=== PATIENT | male | born 1995 | race Caucasian/White ===

== ENCOUNTER 2017-04-15 15:19 | Emergency (ER) | payer BC ==
[2017-04-15 16:58] VITALS: BP 142/91
--- NOTE | 2017-04-15 17:07 | EDM.PDOC ---
ED HPI GENERAL MEDICAL PROBLEM - General Chief Complaint: ENT Problem Stated Complaint: STREP Time Seen by Provider: 04/15/17 16:58 Source of Information: Reports: Patient History Limitations: Reports: No Limitations - History of Present Illness INITIAL COMMENTS - FREE TEXT/NARRATIVE: 21 yo presents with 24 hours fo sore throat and body aches. family has strep. generally healthy. denies cough or nasal congestion. Throat Pain Score (Numeric/FACES): 6 - Related Data Allergies Allergy/AdvReac Type Severity Reaction Status Date / Time No Known Allergies Allergy Verified 04/15/17 16:57 Home Meds: Home Meds NK [No Known Home Meds] 04/15/17 [History] Past Medical History - Past Health History Medical/Surgical History: Denies Medical/Surgical History Social & Family History - Tobacco Use Smoking Status *Q: Never Smoker - Caffeine Use Caffeine Use: Reports: None - Recreational Drug Use Recreational Drug Use: No ED ROS ENT - Review of Systems Review Of Systems: See Below Constitutional: Reports: Fever, Chills, Malaise, Fatigue HEENT: Reports: Throat Pain, Throat Swelling Respiratory: Denies: Shortness of Breath, Wheezing Cardiovascular: Denies: Chest Pain Skin: Denies: Rash ED EXAM, ENT - Physical Exam Exam: See Below Exam Limited By: No Limitations General Appearance: Alert, WD/WN, No Apparent Distress Ears: Normal External Exam, Normal Canal, Hearing Grossly Normal, Normal TMs Nose: Normal Inspection, Normal Mucousa, No Blood Mouth/Throat: Pharyngeal Erythema, Tonsillar Erythema, Tonsillar Exudates, Tonsillar Swelling Head: Atraumatic, Normocephalic Neck: Supple, Lymphadenopathy (R), Lymphadenopathy (L) Respiratory/Chest: No Respiratory Distress, Lungs Clear, Normal Breath Sounds. No: Crackles, Rhonchi, Wheezing Cardiovascular: Regular Rate, Rhythm GI/Abdominal: Soft, Non-Tender Neurological: Alert, Oriented Psychiatric: Normal Affect, Normal Mood Skin: Warm, Dry. No: Rash Course - Vital Signs Last Recorded V/S: Last Vital Signs Temp 35.3 C 04/15/17 16:55 Pulse 96 04/15/17 16:55 Resp 16 04/15/17 16:55 BP 142/91 H 04/15/17 16:55 Pulse Ox 100 04/15/17 16:55 - Re-Assessments/Exams Free Text/Narrative Re-Assessment/Exam: 04/15/17 17:41 positive quick strep will tx with pen V K 500 mg BID for 10 days Departure - Departure Time of Disposition: 17:42 Disposition: Home, Self-Care 01 Condition: good Clinical Impression: Strep pharyngitis - Discharge Information Forms: ED Department Discharge Additional Instructions: penicillin V K 500 mg twice dialy for 10 days ibuprofen 400-600 mg every 6 hours for pain, fever, and body aches increase fluid intake with goal 1.5 liters per day
== END 2017-04-15 17:51 | disposition home or self-care (01) ==
LOC: JP.ED 15:19
DX: J02.0 Streptococcal pharyngitis (principal)
CPT/HCPCS: 87430; 99283